=== PATIENT | female | born 1985 | race Caucasian/White ===

== ENCOUNTER 2019-06-26 07:39 | Emergency (ER) | payer BC ==
[2019-06-26 07:52] VITALS: BP 136/87
--- NOTE | 2019-06-26 08:02 | UC ---
Dental HPI - HPI Summary HPI Summary: 33-year-old woman comes in with a chief complaint of dental pain and throat swelling. Several days ago a left lower molar that she had a root canal on 10 years ago started giving her some pain and she had some gingival swelling. Since that time she started to have sore throat that's now focused on the left side of the throat adjacent to the left lower molar. Does hurt more to swallow. No difficulty swallowing no shortness of breath. No fevers or chills. Feels well otherwise. She was able to get an appointment with her dentist on June 28, 2019. - History of Current Complaint Chief Complaint: UCRespiratory Stated Complaint: SORE THROAT Time Seen by Provider: 06/26/19 07:46 Hx Last Menstrual Period: 06/02/19 Pain Intensity: 2 - Allergies/Home Medications Allergies/Adverse Reactions: Allergies Allergy/AdvReac Type Severity Reaction Status Date / Time No Known Allergies Allergy Verified 06/26/19 07:52 Home Medications: Home Medications Ibuprofen TAB* [Motrin TAB* 400 MG] 400 mg PO Q6H PRN 06/26/19 [History Confirmed 06/26/19] PMH/Surg Hx/FS Hx/Imm Hx Previously Healthy: Yes - Surgical History Surgical History: Yes Surgery Procedure, Year, and Place: appendectomy, R breast cyst - Family History Known Family History: Positive: Non-Contributory - Social History Alcohol Use: Occasionally Substance Use Type: None Smoking Status (MU): Never Smoked Tobacco Review of Systems All Other Systems Reviewed And Are Negative: Yes Constitutional: Positive: Negative Skin: Positive: Negative Eyes: Positive: Negative ENT: Positive: Dental Pain, Sore Throat. Negative: Ear Ache, Nasal Discharge Respiratory: Positive: Negative Cardiovascular: Positive: Negative Gastrointestinal: Positive: Negative Motor: Positive: Negative Neurovascular: Positive: Negative Musculoskeletal: Positive: Negative Neurological: Positive: Negative Psychological: Positive: Negative Is Patient Immunocompromised?: No Physical Exam Triage Information Reviewed: Yes Appearance: Well-Appearing, No Pain Distress, Well-Nourished Vital Signs: Initial Vital Signs Temp 98.1 F 06/26/19 07:47 Pulse 85 06/26/19 07:47 Resp 16 06/26/19 07:47 BP 136/87 06/26/19 07:47 Pulse Ox 100 06/26/19 07:47 Vital Signs Reviewed: Yes Eye Exam: Normal Eyes: Positive: Conjunctiva Clear ENT: Positive: Pharynx normal, TMs normal, Dental tenderness, Other. Negative: Muffled voice, Hoarse voice Dental: Positive: Other: - On the left lower molars has gingival swelling adjacent to it. There is tenderness in the upper anterior neck in the submandibular area on the left side. Oral pharynx is open. Normal voice. Neck: Positive: Supple Respiratory: Positive: Lungs clear, Normal breath sounds, No respiratory distress Cardiovascular: Positive: RRR Musculoskeletal: Positive: Strength Intact, ROM Intact Neurological: Positive: Alert Psychological: Positive: Age Appropriate Behavior Skin Exam: Normal Dental Complaint Course/Dx - Differential Dx/Diagnosis Provider Diagnosis: Dental infection Discharge ED - Sign-Out/Discharge Documenting (check all that apply): Patient Departure All imaging exams completed and their final reports reviewed: No Studies - Discharge Plan Condition: Stable Disposition: HOME Prescriptions: Amoxicillin PO (*) [Amoxicillin 500 MG CAP*] 500 mg PO TID #30 cap Patient Education Materials: Toothache (ED) Referrals: Rachell Meyer MD [Primary Care Provider] - Additional Instructions: FOLLOW UP WITH YOUR DENTIST. GO TO THE EMERGENCY DEPARTMENT IF YOUR CONDITION WORSENS; DIFFICULTY SWALLOWING OR BREATHING, FEVER, YOU FEEL ILL OR ANY QUESTIONS OR CONCERNS. - Billing Disposition and Condition Condition: STABLE Disposition: Home
== END 2019-06-26 08:06 | disposition home or self-care (01) ==
LOC: UCEAST 07:39
DX: K04.7 Periapical abscess without sinus (principal)
CPT/HCPCS: 99212; G0463

== ENCOUNTER 2019-09-01 03:48 | Emergency (ER) | payer BC ==
--- NOTE | 2019-09-01 04:27 | ED ---
Throat Pain/Nasal Congestion - HPI Summary HPI Summary: The patient is a 34 y/o F presenting to [facility] with a chief complaint of persistent and worsening pain in the left anterior throat onset about a week ago. She reports that she visited her PCP last week because she felt a discomfort in her throat on the left side causing difficulty swallowing, but there is no visible protrusion. She was given a prescription for Amoxicillin, and she was to call back if her symptoms continued into yesterday so that she could follow up with ENT. She has been unable to schedule an appointment with ENT, but she had difficulty sleeping tonight secondary to the pain as well as increased diaphoresis. Currently, her symptoms are rated 0/10 in severity. She denies any fever, nausea, vomiting, or diarrhea. She has used Tylenol and Ibuprofen to no relief. She has not experienced this before, but she notes that about two months ago she had pain return in the area where she had a root canal 10 years ago and was placed on antibiotics with improvement. She has not had any dental pain since then. PMHx: root canal, breast lumpectomy, appendectomy. Former smoker, occasional EtOH, no substance use. Medications reviewed. Allergies noted. - History of Current Complaint Chief Complaint: EDThroatPain Time Seen by Provider: 09/01/19 03:52 Hx Obtained From: Patient Onset/Duration: Gradual Onset, Lasting Days - approximately one week, Still Present Severity: Moderate Cough: None Related History: Other (Noted In Comments) - former smoker - Allergies/Home Medications Allergies/Adverse Reactions: Allergies Allergy/AdvReac Type Severity Reaction Status Date / Time No Known Allergies Allergy Verified 06/26/19 07:52 Home Medications: Home Medications Multivitamin 1 tab PO DAILY 09/01/19 [History Confirmed 09/01/19] PMH/Surg Hx/FS Hx/Imm Hx Endocrine/Hematology History: Denies: Hx Diabetes Respiratory History: Denies: Hx Asthma Sensory History: Denies: Hx Legally Blind, Hx Deafness - Surgical History Surgical History: Yes Surgery Procedure, Year, and Place: appendectomy, R breast cyst Infectious Disease History: No Infectious Disease History: Denies: Traveled Outside the [place] in Last 30 Days - Family History Known Family History: Negative: Cardiac Disease, Hypertension - Social History Alcohol Use: Occasionally Hx Substance Use: No Substance Use Type: Reports: None Hx Tobacco Use: Yes Smoking Status (MU): Former Smoker Review of Systems - ROS Summary Review of Systems Summary: Home Medications Medication Instructions Recorded Confirmed Type Amoxicillin PO (*) [Amoxicillin 500 mg PO TID #30 cap 06/26/19 Rx 500 MG CAP*] Ibuprofen TAB* [Motrin TAB* 400 MG] 400 mg PO Q6H PRN 06/26/19 06/26/19 History Positive: Skin Diaphoresis. Negative: Fever Positive: Sore Throat - left anterior pain with swelling. Negative: Dental Pain Negative: Vomiting, Diarrhea, Nausea All Other Systems Reviewed And Are Negative: Yes Physical Exam - Summary Physical Exam Summary: General: Well-developed, Well-nourished female. No acute distress. Moderately anxious-appearing. HEENT: Normocephalic, Atraumatic. Eyes: Conjuctiva normal, PERRL. Ears: TMs within normal limits. Nares: (-) discharge, (-) erythema. Oropharynx: Clear, mucous membranes moist, (-) exudates. Neck: Soft, FROM, (-) lymphadenopathy, (-) thyromegaly, (-) JVD. Cardiovascular: Normal sinus rhythm, (-) murmur. Lungs: Clear to auscultation bilaterally (-) wheezes, (-) rales, (-) rhonchi. Abdomen: Soft, non-tender, non-distended, (-) organomegaly, normal bowel sounds. Back: (-) CVA tenderness Extremities: No edema. Skin: Warm, dry, (-) rash. Neuro: Alert and oriented x3, no focal deficits. Psychiatric: Mood normal, affect normal. Triage Information Reviewed: Yes Vital Signs On Initial Exam: Initial Vitals Temp Pulse Resp BP Pulse Ox 98.1 F 92 18 139/105 100 09/01/19 03:49 09/01/19 03:49 09/01/19 03:49 09/01/19 03:49 09/01/19 03:49 Vital Signs Reviewed: Yes Procedures - Sedation Patient Received Moderate/Deep Sedation with Procedure: No Diagnostics - Vital Signs Vital Signs Temp Pulse Resp BP Pulse Ox 09/01/19 03:49 98.1 F 92 18 139/105 100 - Laboratory Result Diagrams: 09/01/19 04:56 09/01/19 04:56 Lab Statement: Any lab studies that have been ordered have been reviewed, and results considered in the medical decision making process. - CT Neck CT CT Interpretation Completed By: Radiologist Summary of CT Findings: Impression: No acute findings. Recommend video swallowing exam and possible esophagram. The mass in the left side of neck is not evident. ED physician has reviewed this report. Re-Evaluation - Re-Evaluation First Eval Re-Evaluation Time: 06:15 Change: Improved Comment: I have discussed results with the patient and symptoms have improved. Discussed symptoms that warrant immediate return to ED. EENT Course/Dx - Course Course Of Treatment: 34-year-old female presents with perceived mass in her left throat. Describes discomfort. Difficulty swallowing. Has been on antibiotics from PCP although diagnosis was unclear. Patient states she is to call ENT in the morning for evaluation. Symptoms have not changed on antibiotics. he is mass on physical. workup essentially negative.no nondiagnostic. Patient discharged home. Follow-up with the ENT for direct visualization. If any worsening symptoms. - Diagnoses Provider Diagnoses: Difficulty swallowing Discharge ED - Sign-Out/Discharge Documenting (check all that apply): Patient Departure - Patient will be discharged home. - Discharge Plan Condition: Stable Disposition: HOME Patient Education Materials: Dysphagia (ED) Referrals: Rachell Meyer MD [Primary Care Provider] - 3 Days Avery Lopez MD [Medical Doctor] - Additional Instructions: Please follow up with ENT and your primary care physician within three days. Please return to ED for any new or worsening symptoms. - Billing Disposition and Condition Condition: STABLE Disposition: Home - Attestation Statements Document Initiated by Julio: Yes Documenting Scribe: Sangita Ramos Provider For Whom Julio is Documenting (Include Credential): MD Rhonda Robibe Attestation: Sangita Keating scribed for Dr. Na Claros MD on 09/03/19 at 1931. Scribe Documentation Reviewed: Yes Provider Attestation: The documentation as recorded by the Sangita alvarado accurately reflects the service I personally performed and the decisions made by me, Dr. Na Claros MD Status of Scribe Document: Viewed
[2019-09-01] MEDS ORDERED: NS 0.9% 1000 ML** 1,000 ML IV ONE (04:38)
[2019-09-01 05:03] LABS: ABS Basophils 0.1 10^3/ul (0-0.2); ABS Eosinophils 0.2 10^3/ul (0-0.6); ABS Lymphocytes 1.8 10^3/ul (1.0-4.8); ABS Monocytes 0.6 10^3/ul (0-0.8); ABS Neutrophils 3.3 10^3/ul (1.5-7.7); Eosinophil % 3.6 %; Hematocrit 41 % (35-47); Hemoglobin 13.7 g/dL (12.0-16.0); Lymphocyte % 30.5 %; Mean Corpuscular HGB Conc 34 g/dL (31-36); Mean Corpuscular Hemoglobin 30 pg (27-31); Mean Corpuscular Volume 90 fL (80-97); Mean Platelet Volume 8.1 fL (7.4-10.4); Nucleated Red Blood Cells % 0.2; Platelet Count 230 10^3/uL (150-450); Red Blood Count 4.53 10^6 /uL (3.70-4.87); Red Cell Distribution Width 13 % (10-15)
[2019-09-01 05:20] LABS: Albumin 4.5 g/dL (3.2-5.2); Albumin/Globulin Ratio 1.6 (1-3); BUN/Creatinine Ratio 14.9 (8-20); Calcium 9.4 mg/dL (8.6-10.3); EGFR African American 120.5 (>60); EGFR Non-African American 99.6 (>60); Globulin 2.9 g/dL (2-4); Total Bilirubin 0.5 mg/dL (0.2-1.0); Total Protein 7.4 g/dL (6.4-8.9)
[2019-09-01] MEDS ORDERED: Iohexol 300* (CONTRAST) 10 ML SDV IV ONE (05:23)
[2019-09-01 06:55] VITALS: BP 120/79
== END 2019-09-01 06:42 | disposition home or self-care (01) ==
LOC: ED 03:48
DX: R13.10 Dysphagia, unspecified (principal); R07.0 Pain in throat; Z87.891 Personal history of nicotine dependence
CPT/HCPCS: 36415; 70491; 80053; 83605; 85025; 96360; 99282; Q9967